=== PATIENT | female | born 1990 | race Native Hawaiian/Other Pacific Islander ===

== ENCOUNTER 2017-03-10 08:38 | Emergency (ER) | payer OTHER ==
[2017-03-10 08:50] VITALS: TEMP 97.4
[2017-03-10 09:27] LABS: RBC URINE 3 /hpf (0-3); URINE BACTERIA FEW (<OCC); URINE BILIRUBIN NEGATIVE (NEGATIVE); URINE BLOOD 2+ (NEGATIVE); URINE COLOR Amber (YELLOW); URINE GLUCOSE (UA) NORMAL (Normal); URINE KETONE NEGATIVE (NEGATIVE); URINE LEUKOCYTE ESTERASE 2+ Leu/uL (Negative); URINE PROTEIN NEGATIVE (NEGATIVE); WBC CLUMPS OCC /hpf
[2017-03-10 09:31] LABS: WBC URINE 104 /hpf (0-5)
--- NOTE | 2017-03-10 09:49 | C.PDOC ---
History Of Present Illness 26 year old female presents to the ED with complaints of UTI symptoms and slight nausea since yesterday. Patient states she took leftover Keflex from a pervious UTI and notes she gets 2-3 UTIs a year. Denies fever, chills, vaginal bleeding, or vaginal discharge. Time Seen by Provider: 03/10/17 09:22 Chief Complaint (Nursing): Female Genitourinary History Per: Patient History/Exam Limitations: no limitations Onset/Duration Of Symptoms: Days Current Symptoms Are (Timing): Still Present Severity: Mild Associated Symptoms: Nausea, Urinary Symptoms. denies: Fever, Chills, Vomiting , Back Pain Abnormal Vaginal Bleeding: No Past Medical History Reviewed: Historical Data, Nursing Documentation, Vital Signs Vital Signs: Last Vital Signs Temp 97.4 F L 03/10/17 08:48 Pulse 82 03/10/17 09:55 Resp 18 03/10/17 09:55 BP 103/65 03/10/17 09:55 Pulse Ox 100 03/10/17 13:08 - Medical History PMH: No Chronic Diseases Family History: States: Unknown Family Hx - Social History Hx Tobacco Use: No Review Of Systems Except As Marked, All Systems Reviewed And Found Negative. Constitutional: Negative for: Fever, Chills Gastrointestinal: Positive for: Nausea. Negative for: Vomiting Genitourinary: Positive for: Dysuria, Frequency. Negative for: Vaginal Discharge, Vaginal Bleeding Musculoskeletal: Negative for: Back Pain Physical Exam - Physical Exam Appears: Non-toxic, No Acute Distress Skin: Normal Color, Warm, Dry Oral Mucosa: Moist Chest: Symmetrical, No Deformity Cardiovascular: Rhythm Regular Respiratory: Normal Breath Sounds, No Wheezing Gastrointestinal/Abdominal: Soft, Tenderness (+Suprapubic tenderness), No Distention, No Guarding, No Rebound Neurological/Psych: Oriented x3, Normal Speech, Normal Cognition ED Course And Treatment O2 Sat by Pulse Oximetry: 100 (Room air) Pulse Ox Interpretation: Normal Progress Note: Urinalysis ordered and reviewed. Medical Decision Making Medical Decision Making: Results and plan discussed Pt to take 5 days of her keflex, pyridium as needed Disposition Counseled Patient/Family Regarding: Diagnosis, Need For Followup - Disposition Disposition: HOME/ ROUTINE Disposition Time: 09:46 Condition: GOOD Additional Instructions: Take the abx for at least 5 days Plenty of fluids Follow up PCP Prescriptions: Phenazopyridine [Pyridium] 1 tab PO TID PRN #30 tab PRN Reason: .urinary pain Instructions: Urinary Tract Infection in Women (ED) - Clinical Impression Clinical Impression: UTI (urinary tract infection) - Scribe Statement The provider has reviewed the documentation as recorded by the Scribe Lena Boogie. Provider Attestation: All medical record entries made by the Scribe were at my direction and personally dictated by me. I have reviewed the chart and agree that the record accurately reflects my personal performance of the history, physical exam, medical decision making, and the department course for this patient. I have also personally directed, reviewed, and agree with the discharge instructions and disposition.
[2017-03-10 09:55] VITALS: BP 103/65; PULSE 82; RESP 18
[2017-03-10 13:06] VITALS: O2SAT 100
== END 2017-03-10 10:00 | disposition home or self-care (01) ==
LOC: C.ER 08:38
DX: N39.0 Urinary tract infection, site not specified (principal)